=== PATIENT | male | born 1990 | race Caucasian/White ===

== ENCOUNTER 2017-09-06 19:48 | Emergency (ER) | payer OTHER ==
[~2017-09-06 19:48] MED LIST: ACULAR 0.5100 DROP/5 RIGHT EYE; NOHOMEMEDS; VICODIN,LORT1 TABLET PO; VIGAMOX 0.60 DROP/3 RIGHT EYE
== END 2017-09-06 20:09 ==
LOC: EME 19:48 → TRA 19:48
PROC: 30233N1 Transfusion of Nonautologous Red Blood Cells into Peripheral Vein, Percutaneous Approach (ICD-10-PCS; principal; 2017-09-06)
PROC: 05H633Z Insertion of Infusion Device into Left Subclavian Vein, Percutaneous Approach (ICD-10-PCS; principal; 2017-09-06)
PROC: 5A12012 Performance of Cardiac Output, Single, Manual (ICD-10-PCS; principal; 2017-09-06)
PROC: 0W9930Z Drainage of Right Pleural Cavity with Drainage Device, Percutaneous Approach (ICD-10-PCS; principal; 2017-09-06)
PROC: 0W9B30Z Drainage of Left Pleural Cavity with Drainage Device, Percutaneous Approach (ICD-10-PCS; principal; 2017-09-06)
DX: I46.9 Cardiac arrest, cause unspecified (principal); S21.332A Puncture wound without foreign body of left front wall of thorax with penetration into thoracic cavity, initial encounter; X99.9XXA Assault by unspecified sharp object, initial encounter; Y07.9 Unspecified perpetrator of maltreatment and neglect
CPT/HCPCS: 80048; 81003; 82150; 83690; 85025; 86850; 86900; 86901; 86920; C1894; G0480; J0171; P9016